=== PATIENT | female | born 1960 ===

== ENCOUNTER 2024-01-11 10:44 | Outpatient (OUT) | payer SELFPAY ==
--- NOTE | 2024-01-11 10:47 | XR_ITS ---
The [address] [address] Patient Name: CELI HA MRN: [id number] date: 1960 Sex: F Assigned Patient Location: [facility] Current Patient Location: [facility] Accession/Order Number: [id number] Exam Date: 01/11/2024 10:55 Report Date: 01/11/2024 13:20 At the request of: RAPHAEL SIM Procedure: XR foot CAROLYN min 3V EXAMINATION: XR foot CAROLYN min 3V HISTORY: Bilateral Foot Pain COMPARISON: No relevant comparison available. FINDINGS: RIGHT FINDINGS: BONES: No acute fracture or dislocation. Moderate first metatarsal-phalangeal joint osteoarthritis SOFT TISSUES: Negative. No visible soft tissue swelling. OTHER: Negative. LEFT FINDINGS: BONES: No acute fracture or dislocation. Mild to moderate hallux valgus with first metatarsal-phalangeal joint osteoarthritis SOFT TISSUES: Negative. No visible soft tissue swelling. OTHER: Negative. XR/XR foot CAROLYN min 3V IMPRESSION: RIGHT CONCLUSION: First MTP arthritis LEFT CONCLUSION: Hallux valgus with arthritis Electronically authenticated by: ARCHANA PEÑA Date: 01/11/2024 13:20
== END 2024-01-11 10:45 | disposition home or self-care (01) ==
LOC: RAD 10:44
PROVIDERS: Visit Provider Podiatrist Foot & Ankle Surgery
DX: M79.671 Pain in right foot (principal); M79.672 Pain in left foot; M13.871 Other specified arthritis, right ankle and foot; M20.12 Hallux valgus (acquired), left foot
CPT/HCPCS: 73630